=== PATIENT | female | born 1945 | race Caucasian/White ===

== ENCOUNTER 2021-05-02 10:16 | Day surgery (SDC) | payer MEDICARE, SELFPAY ==
[2021-04-27 11:01] VITALS: BMI 31.4
[2021-05-02 10:37] VITALS: BP 158/73; PULSE 79; RESP 16; TEMP 36.7; O2SAT 96
[2021-05-02 11:21] VITALS: BP 165/74; PULSE 73; RESP 18; TEMP 36.9; O2SAT 97
[2021-05-02 11:25] VITALS: BP 165/74; PULSE 73; RESP 18; TEMP 36.9; O2SAT 97
--- NOTE | 2021-05-02 13:10 | [facility].OPNOTE ---
Date of procedure: 05/02/21 Pre-op Diagnosis:: History of bladder cancer Post-op Diagnosis:: History of bladder cancer without evidence of recurrence today. Procedure performed:: Surveillance cystoscopy Surgeon:: Levar Diana MD Anesthesia: local Estimated blood loss (mL): 0 Clinical Note:: Patient is a 76-year-old white female with a history of superficial bladder cancer. She returns today for surveillance cystoscopy. It has been 2 years since her last cystoscopy due to the coronavirus pandemic. She denies any voiding difficulties or gross hematuria. Operative findings:: No evidence of bladder tumor recurrence. Operative note:: Patient taken to the cystoscopy suite after informed consent was obtained. On the stretcher she was placed in the supine position and the legs in the frog-leg position. She was prepped and draped in the standard surgical fashion and 2% lidocaine placed into the urethra. After few minutes the flexible cystoscope introduced into the urethral meatus. Passed into the bladder without difficulty and the bladder was examined in a systematic fashion. There is no evidence of bladder tumor recurrence, stones, trabeculation, diverticula or cellule formation. The ureteral orifices were in their normal anatomic position with clear efflux of urine. Scope was retroflexed showing a normal bladder neck. The scope removed. The patient tolerated the procedure well there are no complications. We discussed the findings and we will see her back in 1 year in follow-up. Condition: stable Disposition: same day Specimens:: None Complications:: None
== END 2021-05-02 11:27 | disposition home or self-care (01) ==
PROVIDERS: PCP Family Medicine; Visit Provider Urology
PROC: (CPT 52000; principal; 2021-05-02 11:45)
DX: Z85.51 Personal history of malignant neoplasm of bladder (principal); Z08 Encounter for follow-up examination after completed treatment for malignant neoplasm; Z79.899 Other long term (current) drug therapy; Z79.01 Long term (current) use of anticoagulants
CPT/HCPCS: 52000

== ENCOUNTER 2022-05-15 09:10 | Day surgery (SDC) | payer MEDICARE, SELFPAY ==
[2022-05-10 13:29] VITALS: BMI 32.6
[2022-05-15 09:51] VITALS: BP 204/68; PULSE 65; RESP 18; TEMP 36.9; O2SAT 97
[2022-05-15 11:21] VITALS: BP 195/73; PULSE 65; RESP 18; TEMP 36.2; O2SAT 97
[2022-05-15 11:29] VITALS: BP 195/73; PULSE 65; RESP 18; TEMP 36.2; O2SAT 97
--- NOTE | 2022-05-15 11:37 | [facility].OPNOTE ---
Date of procedure: 05/15/22 Pre-op Diagnosis:: History of bladder cancer Post-op Diagnosis:: History of bladder cancer with no recurrence today. Procedure performed:: Surveillance cystoscopy Surgeon:: Levar Diana MD Anesthesia: local Estimated blood loss (mL): 0 Clinical Note:: 77-year-old white female with a history of bladder cancer presents for her yearly surveillance cystoscopy. She denies any interval gross hematuria. It has been several years since her last recurrence. Operative findings:: No evidence of bladder tumor recurrence or other abnormalities today. Operative note:: Patient taken to the cystoscopy suite after informed consent was obtained. On the stretcher she was prepped draped in the standard surgical fashion and 2% lidocaine placed into the urethra. After 5 minutes the flexible 16 [place] cystoscope was passed into the urethral meatus and passed into the bladder without difficulty. The bladder was examined in a systematic fashion. There is no evidence of recurrent bladder tumors, mucosal abnormalities, stones, diverticula or trabeculation. The ureteral orifices in their normal anatomic position with clear efflux of urine. Scope was retroflexed showing a normal bladder neck. The urethra examined as the scope was removed and it was within normal limits as well. Patient tolerated procedure well there are no complications. We discussed the findings today and we will see her back in 1 year with surveillance cystoscopy. Condition: stable Disposition: same day Specimens:: None Complications:: None
== END 2022-05-15 11:29 | disposition home or self-care (01) ==
LOC: OUTP 09:12
PROVIDERS: PCP Family Medicine; Visit Provider Urology
DX: Z85.51 Personal history of malignant neoplasm of bladder (principal); I25.10 Atherosclerotic heart disease of native coronary artery without angina pectoris; Z79.82 Long term (current) use of aspirin; Z79.899 Other long term (current) drug therapy
CPT/HCPCS: 52000